=== PATIENT | male | born 1960 | race Caucasian/White ===

== ENCOUNTER 2023-04-01 04:21 | Emergency (ER) | payer OTHER, SELFPAY ==
[2023-04-01 04:25] VITALS: BP 159/96; PULSE 70; RESP 18; TEMP 36.6; O2SAT 98; BMI 32.5
--- NOTE | 2023-04-01 04:39 | CRLHL7_ITS ---
For Patients: As a result of the Cures Act, medical imaging exams and procedure reports are released immediately into your electronic medical record. You may view this report before your referring provider. If you have questions, please contact your health care provider. INDICATION: Left flank pain. TECHNIQUE: CT abdomen and pelvis without contrast. COMPARISON: None FINDINGS: Lower chest: Small sliding hiatus hernia. Visualized lung parenchyma clear. Liver: Unremarkable. Spleen: Unremarkable. Pancreas: Unremarkable. Gallbladder and bile ducts: Unremarkable. Kidneys: 5 mm left UPJ calculus with mild hydronephrosis. Millimeter nonobstructing calculus lower pole left kidney. 13 mm partially exophytic cyst lateral mid pole left kidney. 9 x 5 mm calculus lower pole right kidney. No obstruction on the right. Adrenal glands: Unremarkable. GI tract: Unremarkable. Appendix is normal. Vascular structures: Unremarkable. Lymph nodes: Unremarkable. Miscellaneous: Unremarkable. No free air or significant free fluid. Pelvic Organs: Unremarkable. Bones: Chronic bilateral L5 pars defects with mild grade 1 anterolisthesis. IMPRESSION: Partially obstructing 5 mm left UPJ calculus. Other nonobstructing calculi in each kidney as described. Small sliding hiatus hernia. Chronic L5 pars defects without anterolisthesis. Please note that all CT scans at this facility use dose modulation, iterative reconstruction, and/or weight-based dosing when appropriate to reduce radiation dose to as low as reasonably achievable. Dictated by Taye Neal MD @ 04/01/2023 6:12:36 AM (Electronically Signed)
--- NOTE | 2023-04-01 04:40 | ED.GENADULT ---
HPI - General Adult General Time Seen by Provider: 04:40 Date Seen: 04/01/23 Chief complaint: Back Injury/Pain Stated complaint: Left Side Back Pain Time Seen by Provider: 04/01/23 04:33 Source: patient, RN notes reviewed and old records reviewed Mode of arrival: ambulatory Limitations: no limitations History of Present Illness HPI narrative: 63-year-old male who comes in with left-sided low back pain. This started this morning. Pain is constant, no worse with movement. Denies urinary symptoms but pain does radiate into the left testicle and hemiscrotum. No vomiting, does have some nausea. No bowel or bladder disc function. Pain does not radiate into the leg. Has not taken anything for this. Related Data Home Medications Medication Instructions Recorded Confirmed atenolol 50 mg tablet 50 mg PO DAILY 04/01/23 04/01/23 glimepiride 2 mg tablet 2 mg PO QAM 04/01/23 04/01/23 lisinopril 5 mg tablet 5 mg PO DAILY 04/01/23 04/01/23 metformin 1,000 mg tablet 1,000 mg PO BID 04/01/23 04/01/23 rosuvastatin 5 mg tablet 5 mg PO QPM 04/01/23 04/01/23 Allergies Allergy/AdvReac Type Severity Reaction Status Date / Time doxycycline Allergy Hives Verified 04/01/23 04:30 [facility] Social History Smoking Status: Never smoker Do you use any of these nicotine containing products: None How often do you have a drink containing alcohol: never AUDIT-C Alcohol total score: 0 Non-prescribed substance use: former substance user Non-prescribed substance use details: used to smoke weed a long time ago Exam Narrative: Exam Narrative: General: Well-developed and well-nourished, no acute distress Head: Atraumatic and normocephalic Eyes: Pupils are equal reactive, extraocular motions intact, conjunctiva clear ENT: External nose and ears are normal, posterior pharynx without erythema or exudate Neck: No midline cervical tenderness, full spontaneous range of motion the neck, trachea midline, no adenopathy Heart: Regular rate and rhythm no murmurs or thrills Lungs: Clear to auscultation bilaterally without wheezes or crackles Abdomen: Soft, nontender, nondistended with active bowel sounds Musculoskeletal: No tenderness, deformity, or edema Neurologic: Awake, alert, and oriented x3, no gross focal neurologic deficits, cranial nerves intact as tested Psych: Mood and affect are appropriate Skin: No rashes Const: Vital Signs, click to edit/add: Vital Signs - 24 hr 04/01/23 04:25 04/01/23 05:47 Temperature 98 F Pulse Rate [Pulse Oximeter] 70 73 Respiratory Rate 18 16 Blood Pressure [Ri ght Upper Arm] 159/96 H 123/75 Pulse Oximetry 98 93 Oxygen Delivery Me thod Room Air Room Air Course Course Hospital Course: Patient seen examined, prior records reviewed. Patient with history of diabetes and CLL comes in with left-sided low back pain radiating to the left testicle. Not reproducible on exam, no CVA tenderness, moves easily from laying to sitting. Given the pain radiates into the left testicle and is not worse movement, suspect kidney stone. With history of CLL, worry about bony metastases as well. Labs and CT scan ordered along with Toradol and Zofran. Reevaluation(s) Time of Reevaluation #1: 05:14 Reevaluation #1: Urinalysis independently interpreted by me with trace blood, basic panel independently interpreted by me is reassuring. CT scan of the abdomen and pelvis in the panel interpreted by me demonstrates a 4 mm proximal ureteral/UPJ stone on the left. Patient will be discharged with medications for pain and nausea, follow-up instructions. White blood cell count is elevated at 55.9 consistent with CLL but no indication of infection on urinalysis. Time of Reevaluation #2: 06:14 Reevaluation #2: Radiology interpretation agrees with my initial interpretation. Pain is improved. Vital Signs Vital signs: Initial Vital Signs Temperature 98 F 04/01/23 04:25 Temperature Source Temporal Artery Scan 04/01/23 04:25 Pulse Rate 70 04/01/23 04:25 Respiratory Rate 18 04/01/23 04:25 Blood Pressure 159/96 H 04/01/23 04:25 Blood Pressure Mean 117 H 04/01/23 04:25 Blood Pressure Position Supine 04/01/23 04:25 Pulse Oximetry 98 04/01/23 04:25 Oxygen Delivery Method Room Air 04/01/23 04:25 Vital Signs Temperature 98 F 04/01/23 04:25 Pulse Rate 70 04/01/23 04:25 Respiratory Rate 18 04/01/23 04:25 Blood Pressure 159/96 H 04/01/23 04:25 Pulse Oximetry 98 04/01/23 04:25 Oxygen Delivery Method Room Air 04/01/23 04:25 Temperature 98 F 04/01/23 04:25 Pulse Rate 73 04/01/23 05:47 Respiratory Rate 16 04/01/23 05:47 Blood Pressure 123/75 04/01/23 05:47 Pulse Oximetry 93 04/01/23 05:47 Oxygen Delivery Method Room Air 04/01/23 05:47 Medical Decision Making Lab Data Labs: Lab Results 04/01/23 Range/Units 03:40 WBC 55.88 H* (4.50-11.00) K/uL RBC 5.22 (4.30-5.90) m/uL Hgb 14.9 (13.5-17.5) gm/dL Hct 46.1 (37.0-53.0) % MCV 88 (80-100) fL MCH 29 (26-34) pg MCHC 32 (32-36) gm/dL RDW Coeff of Sandy 13.3 (11.5-15.5) % Plt Count 203 (140-440) K/uL Neut % (Auto) 8.5 L (42.0-72.0) % Lymph % (Auto) 89.5 H (20-44) % [place] % (Auto) 1.4 (0.0-11.0) % Eos % (Auto) 0.4 (0.0-7.0) % Baso % (Auto) 0.1 (0.0-3.0) % Neut # (Auto) 4.70 (1.7-7.0) K/uL Lymph # (Auto) 50.00 H (0.90-2.90) K/uL [place] # (Auto) 0.80 (0.00-0.90) K/UL Eos # (Auto) 0.20 (0.00-0.50) K/uL Baso # (Auto) 0.10 (0.00-0.30) K/uL Diff Slide Review Acceptable Review (Acceptable) Sodium 140 (135-149) mmol/L Potassium 4.3 (3.6-5.1) mmol/L Chloride 106 (96-114) mmol/L Carbon Dioxide 22 (20-32) mmol/L BUN 25 (7-30) mg/dL Creatinine 1.2 (0.5-1.5) mg/dL Estimated Creat Clear 69.16 Estimated GFR 68 ml/min Glucose 190 H (60-115) mg/dL Calcium 9.4 (8.4-10.6) mg/dL Urine Color Yellow (Yellow) Urine Appearance Clear (Clear) Urine pH 5.5 (5.0-8.5) Ur Specific [place] 1.025 (1.000-1.030) Urine Protein Negative (Negative) Urine Glucose (UA) Negative (Negative) Urine Ketones Negative (Negative) Urine Blood Trace-lysed A (Negative) Urine Nitrite Negative (Negative) Urine Bilirubin Negative (Negative) Urine Urobilinogen 0.2 (0.2-1.0) Ur Leukocyte Esterase Negative (Negative) Urine RBC 0-2 (0-2) Urine WBC 0-2 (0-5) Ur Squamous Epith Cells Few (None-Few) Urine Bacteria None (None) Discharge Plan Discharge Clinical Impression: Calculus of proximal left ureter Patient Disposition: Home, Self-Care Condition: Stable Instructions: Ureteral Stones (ED) Additional Instructions: Drink to thirst Take Tylenol 1 g every 6 hours alternating with ibuprofen 400mg every 6 hours scheduled for baseline pain management Take chewable dimenhydrinate (Dramamine) every 6 hours for pain management and nausea Take oxycodone as needed for severe pain not relieved with Tylenol and ibuprofen Take Zofran as needed for nausea Follow-up with [facility] ([phone] or [email or web address] or [facility] [place] ([phone]) or [place] ([phone]) this week. You may also try to schedule with Dr. Tomlinson in [place] ([phone]). Activity Level: Activity as Tolerated Discharge Diet: Regular Prescriptions: No Action glimepiride 2 mg tablet 2 mg PO QAM metformin 1,000 mg tablet 1,000 mg PO BID lisinopril 5 mg tablet 5 mg PO DAILY atenolol 50 mg tablet 50 mg PO DAILY rosuvastatin 5 mg tablet 5 mg PO QPM Follow Up/Referrals: Marcelino Ramirez MD [Primary Care Provider] - Stand Alone Forms: [facility] Info Instructions
[2023-04-01 04:52] LABS: Appearance Urine Clear (Clear); Basophils Percent Auto 0.1 % (0.0-3.0); Bilirubin Urine Negative (Negative); Blood Urine Trace-lysed (Negative); Color Urine Yellow (Yellow); Eosinophils Percent Auto 0.4 % (0.0-7.0); Glucose Urine Negative (Negative); Hematocrit 46.1 % (37.0-53.0); Hemoglobin* 14.9 gm/dL (13.5-17.5); Immature Granulocytes Pct Auto 0.1 %; Ketones Urine Negative (Negative); Leukocyte Esterase Urine Negative (Negative); Lymphocytes Percent Auto 89.5 % (20-44); Mean Corpuscular HGB Conc 32 gm/dL (32-36); Mean Corpuscular Hemoglobin 29 pg (26-34); Mean Corpuscular Volume 88 fL (80-100); Monocytes Percent Auto 1.4 % (0.0-11.0); Neutrophils Percent Auto 8.5 % (42.0-72.0); Nitrite Urine Negative (Negative); Platelet Count* 203 K/uL (140-440); Protein Urine Negative (Negative); RDW Coefficient of Variation % 13.3 % (11.5-15.5); Red Blood Count 5.22 m/uL (4.30-5.90); Specific Gravity Urine 1.025 (1.000-1.030); Urobilinogen Urine 0.2 (0.2-1.0); pH Urine 5.5 (5.0-8.5)
[2023-04-01] MEDS: ONDANSETRON 2 MG/ML inj 4 MG IVP (04:54)
[2023-04-01] MEDS: 0.9 % SODIUM CHLORIDE 1000 ml 1,000 ML IV (04:54)
[2023-04-01] MEDS: KETOROLAC 15 MG/ML inj IVP (04:54)
[2023-04-01 05:06] LABS: Chloride* 106 mmol/L (96-114)
[2023-04-01 05:07] LABS: Potassium* 4.3 mmol/L (3.6-5.1); Sodium* 140 mmol/L (135-149)
[2023-04-01 05:09] LABS: Carbon Dioxide* 22 mmol/L (20-32); Creatinine* 1.2 mg/dL (0.5-1.5); Est. Creatinine Clearance* 69.16; Estimated Glomerular Filt Rate 68 ml/min; RBC Urine 0-2 (0-2); Squamous Epithelial Cell Urine Few (None-Few); WBC Urine 0-2 (0-5)
[2023-04-01 05:10] LABS: Blood Urea Nitrogen* 25 mg/dL (7-30); Calcium* 9.4 mg/dL (8.4-10.6); Glucose* 190 mg/dL (60-115)
[2023-04-01 05:15] LABS: Slide Review Reflex Yes; White Blood Count* 55.88 K/uL (4.50-11.00)
[2023-04-01 05:17] LABS: Slide Review Acceptable Review (Acceptable)
--- NOTE | 2023-04-01 05:17 | PC.NURSE ---
Dr Snyder updated on critical WBC.
--- OUTSIDE RECORDS SUMMARY | 2023-04-01 05:23 | XMS_ITS | Continuity of Care Document ---
Author Name Unknown Organization [facility] Address [address] [address] [place] [address] Phone Care Team Providers Care Inventory Audit Clerk Name Role Phone Tod Griffin MD Unavailable Unavailable Allergies, Adverse Reactions, Alerts Substance Reaction Status Criticality No Known allergies Medications Medication Instructions Dosage Effective Dates (start - stop) Status Comments atenolol 50 mg tablet take 1 tablet by oral route every day 50 MG - Active MiralaxBisacodylMagCit Colon Prep Use as directed - No Longer Active Procedures Procedure Date Colonoscopy Flex; Dx (sep Pro) 15 Advance Directives Directive Yes / No Effective Date File Name No Information Encounters Encounter Description Practice Location Reason(s) For Visit Diagnoses Date Provider Providers Copied on Encounter [facility], [address] [address], [place], [place], [id number], tel:[phone] [place] [facility] DiverticulosisColon Cancer ScreeningDiverticul osis Of Colon 5 Elias Baron. [address] [place] [address], [id number] , [place]. tel: [phone] [facility], [address] [address], [place], [place], [id number], [place] tel:[phone] [facility] External Referral 5 Bryant Meade. [address] [place] [address], [id number] , [place]. tel:[phone] Family History Family Member Type Diagnosis Age At Onset Father Problem (finding) Father Problem (finding) Lymphoma Mother Problem (finding) diverticulitis of colon Mother Problem (finding) Alive and well Payers Payer name Insurance type Covered democrat ID Logan zee(s) [facility] [id number] Social History Type Description Quantity Date Captured Comments Alcohol Use Details Unknown Caffeine Use Details Unknown Tobacco Use Status No Information Smoking Status Never smoker Sex Male Vital Signs Date / Time: Height Weight BMI Pulse Rate Blood Pressure Temperature Respiratory Rate Body Surface Area Head Circumference Head Circ. Percentile Wt./Kip. Percentile BMI percentile Pulse Ox Inhaled Ox 72.00 in 131.520 kg (290.00 lbs) 39.3 0 kg/m eter (2) 76 /min 152/97 mm[Hg] 0.00 F 16 /min 97 % Chief Complaint And Reason For Visit No Information Reason For Referral Reason For Referral No Information Plan Of Treatment Date Type Action Status No Information History Of Present Illness Encounter Date Complaint History Of Prese nt Illness No Information Functional Status Date Functional Assessmen t No Information Instructions Date Instruction Additional Infor alonsoion Colon Cancer Prevention Related to Diverticulosis Diverticulosis/Diverticulitis Re lated to Diverticulosis High Fiber Diet Related to Diver ticulosis Assessments Type Assessment Date assessment Diverticulosis Patient Care Teams Name Effective Dates (start - stop) Status Members No Information
[2023-04-01 05:47] VITALS: BP 123/75; PULSE 73; RESP 16; O2SAT 93
--- NOTE | 2023-04-01 06:49 | PC.NURSE ---
patient DC with urinary strainer and collection container. and stated understanding to DC instruction
== END 2023-04-01 06:49 | disposition home or self-care (01) ==
PROVIDERS: Emergency Provider Family Medicine; PCP Family Medicine
DX: N20.1 Calculus of ureter (principal)
CPT/HCPCS: 36415; 74176; 80048; 81001; 85025; 96374; 96375; 99284; J1885; J2405; J7030

== ENCOUNTER 2023-04-09 07:47 | Outpatient (CLI) | payer OTHER, SELFPAY | END 2023-04-09 07:48 | disposition home or self-care (01) | PROVIDERS: PCP Family Medicine; Visit Provider Family Medicine | DX: Z00.00 Encounter for general adult medical examination without abnormal findings (principal); I10 Essential (primary) hypertension; E11.9 Type 2 diabetes mellitus without complications; Z13.6 Encounter for screening for cardiovascular disorders; Z12.5 Encounter for screening for malignant neoplasm of prostate | CPT/HCPCS: 80053; 80061; 82043; 82570; 84153 ==

== ENCOUNTER 2023-05-15 09:41 | Outpatient (RCR) | payer OTHER, SELFPAY ==
[2023-05-15 10:05] LABS: Basophils Percent Auto 0.1 % (0.0-3.0); Eosinophils Percent Auto 0.6 % (0.0-7.0); Hematocrit 44.5 % (37.0-53.0); Hemoglobin* 14.3 gm/dL (13.5-17.5); Immature Granulocytes Pct Auto 0.1 %; Mean Corpuscular HGB Conc 32 gm/dL (32-36); Mean Corpuscular Hemoglobin 28 pg (26-34); Mean Corpuscular Volume 88 fL (80-100); Monocytes Percent Auto 3.2 % (0.0-11.0); Platelet Count* 179 K/uL (140-440); RDW Coefficient of Variation % 13.6 % (11.5-15.5); Red Blood Count 5.07 m/uL (4.30-5.90)
[2023-05-15 10:35] LABS: Slide Review Reflex Yes; White Blood Count* 52.61 K/uL (4.50-11.00)
[2023-05-15 10:37] LABS: Slide Review Acceptable Review (Acceptable)
== END 2023-11-11 23:59 | disposition home or self-care (01) ==
LOC: CCIC 09:41
PROVIDERS: PCP Family Medicine; Visit Provider Internal Medicine Hematology & Oncology
DX: C91.10 Chronic lymphocytic leukemia of B-cell type not having achieved remission (principal)
CPT/HCPCS: 36415; 85025; 99212; 99213

== ENCOUNTER 2023-09-16 16:05 | Outpatient (CLI) | payer OTHER, SELFPAY | END 2023-09-16 16:06 | disposition home or self-care (01) | LOC: NFLDREF 16:07 | PROVIDERS: PCP Family Medicine; Visit Provider Family Medicine | DX: Z01.818 Encounter for other preprocedural examination (principal) | CPT/HCPCS: 80048 ==

== ENCOUNTER 2023-10-02 15:54 | Outpatient (CLI) | payer OTHER, SELFPAY | END 2023-10-02 15:55 | disposition home or self-care (01) | LOC: NFLDREF 15:56 | PROVIDERS: PCP Family Medicine; Visit Provider Family Medicine | DX: I10 Essential (primary) hypertension (principal); E78.5 Hyperlipidemia, unspecified | CPT/HCPCS: 80048 ==

== ENCOUNTER 2023-10-28 06:12 | Day surgery (SDC) | payer OTHER, SELFPAY ==
[2023-10-28] VITALS (11 sets, daily range): BP systolic 105–130; BP diastolic 65–96; PULSE 63–85; RESP 14–16; TEMP 36.4–37.2; O2SAT 94–99; BMI 30.4
--- OUTSIDE RECORDS SUMMARY | 2023-10-28 06:15 | XMS_ITS | Clinical Summary ---
Author Name Unknown Organization [facility] Address [place], [place] [address] Care Team Providers Care Paper Sample Clerk Name Role Phone Marcelino Ramirez MD Primary Care Provider [phone] Allergies Active Allergy Reactions Criticality Noted Date Comments Doxycycline Hives Low 03/25/2022 Medications Medication Sig Dispensed Refills Start Date End Date Status atenoloL (TENORMIN) 50 mg tablet Take 50 mg by mouth once daily. 0 04/24/2022 Active glimepiride (AMARYL) 2 mg tablet TAKE ONE TABLET BY MOUTH IN THE MORNING WITH BREAKFAST. 0 04/13/2022 Active lisinopriL (PRINIVIL; ZESTRIL) 5 mg tablet Take 5 mg by mouth once daily. 0 04/13/2022 Active metFORMIN (GLUCOPHAGE) 1,000 mg tablet Take 1,000 mg by mouth in the morning and 1,000 mg in the evening. Take with meals. 0 04/24/2022 Active rosuvastatin (CRESTOR) 5 mg tablet Take 5 mg by mouth at bedtime. 0 04/13/2022 Active tamsulosin (FLOMAX) 0.4 mg capsule Take 0.4 mg by mouth once daily. 0 Active HYDROcodone-acetami nophen ([place]) 5-325 mg per tablet Take 1-2 Tablets by mouth every 6 hours if needed for Pain. Max acetaminophen dose: 4000 mg in 24 hrs. 0 Active oxyCODONE (ROXICODONE) 5 mg immediate release tablet Take 5 mg by mouth every 4 hours if needed for Pain. 0 Active Social History Tobacco Use Types Packs/Day Years Used Date Smoking Tobacco: Never Assessed Sex and Gender Information Value Date Recorded Sex Assigned at Not on file Gender Identity Not on file Sexual Orientation Not on file Obstetrics History Last Filed Vital Signs Vital Sign Reading Time Taken Comments Blood Pressure 135/82 05/08/2022 3:09 PM CDT Pulse 75 05/08/2022 3:09 PM CDT Temperature - - Respiratory Rate - - Oxygen Saturation 95% 05/08/2022 3:09 PM CDT Inhaled Oxygen Concentration - - Weight 113 kg (249 lb 3.2 oz) 05/08/2022 3:09 PM CDT Height - - Body Mass Index - - Plan of Treatment Health Maintenance Due Date Last Done Comments Tdap 12/31/1970 Depression screening for age 12+ 1972 HIV for age 15-65 12/31/1974 BMI (ht and wt on same day) for age 18+ 12/31/1977 Hepatitis C screening for ag e 18-79 12/31/1977 Tetanus booster 1980 Colonoscopy through age 75 12/31/2004 Lipids for age 45-75 12/31/2004 Zoster (shingles) series for age 50+ (1 of 2) 12/31/2009 COVID-19 vaccine series (2022- season) 2023 09/26/2021, 01/13/2021, 12/23/2020 Influenza for age 50-64 06/06/2023 Pneumococcal series for age 6-64 Aged Out No longer eligible b ased on patient's age to complete this topic Care Teams Paper Sample Clerk Relationship Specialty Start Date End Date Marcelino Ramirez MD [address] [place] [address] PCP - General Family Practice 05/08/22
--- OUTSIDE RECORDS SUMMARY | 2023-10-28 06:15 | XMS_ITS | Data Portability ---
Author Name Unknown Address [address] [place] [address] Phone [phone] Organization [facility], Main Office Address [address] [address] Assessment Encounter Date Assessment Date Assessment LastModified by Organization Details LastModified Time 08/02/2019 08/02/2019 1. Basal carcino ma right nasal red here for Mohs surgery. We discussed the risks and benefits including pain, discomfort, bruising, swollen eyelids, 2% infection rate, 2 to 5% recurrence rate after Mohs surgery 5 years and 10 years respectively. Reviewed the difficulty in closure of this area to minimize any risk of ectropion or disruption of the medial canthus. This may require graft or flap. This was reviewed in great detail prior to the procedure. Verbal and written informed consent obtained. Anesthetized 1% lidocaine with epinephrine. Mohs case number [id number] Stage I: Curette debulking performed. 1 to 1/2 mm margins were taken circumferentially carried down to the deep dermis. There was no residual basal carcinoma. Final lesion size 1.0 x 0.8 cm. Due to the nature of the defect the location intermediate or complex closure would cause too much tension on the medial canthus. We performed a superior based transposition flap using the glabellar lines. Undermined all directions 1 to 2 cm. Rotated inferior. Closed with 4-0 Vicryl and 4-0 nylon to be removed in 1 week in [facility]. Pressure dressing applied, cell phone number, clinic phone number given. Verbal and written informed consent obtained verbal and written instructions given for wound care The final flap, cover less than 10 cm?? surface area on the face. Flap was performed to minimize risk of any ectropion [email or web address] Not available 08/05/2019 23:05:32 Plan of Treatment Reminders Order Date Submit Date Provider Last Modified By Organization Details Last Modified Time Details Appointments None record ed. Lab None record ed. Referral None record ed. Procedures None record ed. Surgeries None record ed. Imaging None record ed. Medication Orders None record ed. Patient TargetsNo targets recorded. Patient InstructionsNo instructions recorded. Reason for Referral None Reported. Results Created Date Observation Date Name Description Value Unit Range Abnormal Flag LastModifiedBy Organization Detail LastModifiedTime Result Notes None recorded. Problems No Known Problems Medical Equipment None Reported. Allergies No known drug allergies Medications Name Sig Start Date Stop Date Status Note LastModified by Organization Details LastModified Time softclix mis lancets active Not Available Not Available Not Available metformin 1,000 mg tablet active Not Available Not Available Not Available lisinopril 5 mg tablet active Not Available Not Available No t Available atenolol 50 mg tablet active Not Available Not Available No t Available Contour Next Test Strips active Not Available Not Available Not Available Vitals None Recorded Social History None recorded. Functional Status None recorded. Mental Status None recorded. Family History Nothing Reported. Medical History No medical history recorded. Past Encounters Encounter ID Performer Location Encounter Start Date Encounter Closed Date Diagnosis/Indication [id number] Ingris Treviño MD Main Office [address] [facility] [address] [place] [address] 08/02/2019 09:28:21 08/05/2019 23:33:50 Basal cell carcinoma of nose Health Concerns Section Related Observation LastModified by Organization Detai ls LastModified Time None Recorded Concern Status LastModified by Organization Details LastModified Time None Recorded Advance Directives Directive None Recorded Payers Encounter Date Sequence Insurance Name Policy Number Policy Reilly Covered Member ID Reilly Member ID Guarantor Name 08/02/2019 1 [place] [id number] Willsudarshan Carterlund [id number] Will Sultana Notes Date Note Type Note Provider Name and Address Organization Details Recorded Time 08/02/2019 text/html HPI Notes: 59-year-old male, presents alone, for evaluation of a biopsy-proven basal carcinoma right nasal root. His past medical history social history and family history known to me from [place]. Review of systems feels in good health notes no issues with bleeding, clotting or healing. Ingris Treviño MD [address],[facility], [place], [address], [facility] 08/05/2019 23:06:04
--- OUTSIDE RECORDS SUMMARY | 2023-10-28 06:16 | XMS_ITS | Encounter Summary ---
Author Name Unknown Organization [facility] Address [address] [place] [address] Care Team Providers Care Rubber Goods Finisher Name Role Phone Unavailable Primary Care Provider Unavailabl e Reason for Visit * Reason Onset Date Comments URO SURGERY DATE 04/16/23 04/03/2023 Encounter Details Date Type Department Care Team (Latest Contact Info) Description 04/03/2023 Clinical Communication Department of Urology in [place], [place] [address] [address] Kaleb Tomlinson M.D. [address] [address] URO SURGERY DATE 04/16/23 Social History Tobacco Use Types Packs/Day Years Used Date Smoking Tobacco: Never Passive Smoke Exposure: Never Smokeless Tobacco: Never Humiliation, Afraid, Rape, and Kick questionnair e Answer Date Recorded Within the last year, have y ou been afraid of your partner or ex-partner? No 04/03/2023 Within the last year, have y ou been humiliated or emotionally abused in other ways by your partner or ex-partner? No Within the last year, have y ou been kicked, hit, slapped, or otherwise physically hurt by your partner or ex-partner? No 04/03/2023 Within the last year, have y ou been raped or forced to have any kind of sexual activity by your partner or ex-partner? No 04/03/2023 Overall Financial Resource Strain (CARDIA) Answe r Date Recorded How hard is it for you to pa y for the very basics like food, housing, medical care, and heating? Not very hard 04/03/2023 Exercise Vital Sign Answer Date Recorde d On average, how many days pe r week do you engage in moderate to strenuous exercise (like a brisk walk)? 1 day 04/03/2023 On average, how many minutes do you engage in exercise at this level? 30 min 04/03/2023 Hunger Vital Sign Answer Date Recorded Within the past 12 months, y ou worried that your food would run out before you got the money to buy more. Never true 04/03/20 Within the past 12 months, t he food you bought just didn't last and you didn't have money to get more. Never true 04/03/2023 PRAPARE - Transportation Answer Date Re corded In the past 12 months, has l ack of transportation kept you from medical appointments or from getting medications? No 03/07 In the past 12 months, has l ack of transportation kept you from meetings, work, or from getting things needed for daily living? No 04/03/2023 Nutrition Answer Date Recorded Nutrition: EVOO Fat Source Unknown 04/03 On average, how many serving s of fruits and vegetables do you eat per day (serving size is equal to 1 cup or approximately the size of a tennis ball)? 3-5 04/03/2023 Dental Answer Date Recorded Dental: Regular Dentist Yes 04/03/20 Employment Answer Date Recorded Employment status Employed and actively working without restrictions 04/03/2023 Housing Stability Answer Date Recorded What is your living situation today? I have a [facility] place to live 04/03/2023 Sex and Gender Information Value Date Recorded Sex Assigned at Male 04/03/2023 6:25 AM CDT Gender Identity Male 04/03/2023 6:25 AM CDT Sexual Orientation Not on file documented as of this encounter Plan of Treatment Not on file documented as of this encounter Visit Diagnoses Not on filedocumented in this encounter
--- OUTSIDE RECORDS SUMMARY | 2023-10-28 06:16 | XMS_ITS | Encounter Summary ---
Author Name Unknown Organization [facility] Address [address] [place] [address] Care Team Providers Care Undercutter Name Role Phone Unavailable Primary Care Provider Unavailabl e Reason for Visit * Reason Onset Date Comments Urgent Appt Request 04/02/2023 Encounter Details Date Type Department Care Team (Latest Contact Info) Description 04/02/2023 Clinical Communication Department of Urology in [place], [place] [address] [address] Kaleb Tomlinson M.D. [address] [address] Urgent Appt Request Social History Tobacco Use Types Packs/Day Years Used Date Smoking Tobacco: Never Assessed Humiliation, Afraid, Rape, and Kick questionnair e [...] your living situation today? I have a [facility] place to live 04/03/2023 Sex and Gender Information Value Date Recorded Sex Assigned at Male 04/03/2023 6:25 AM CDT Gender Identity Male 04/03/2023 6:25 AM CDT Sexual Orientation Not on file documented as of this encounter Miscellaneous Notes * Telephone Encounter - Joselyn Lebron R.N. - 04/02/2023 3:48 PM CDT MAURICIO Lizarraga RN spoke with patient and is scheduled tomorrow, 04/03/23 with Provider Priyank. Patient has requested [facility] records to be faxed to [place]. Ow Uro RN also called [facility] records tofax records. documented in this encounter Plan of Treatment Not on file documented as of this encounter Visit Diagnoses Not on filedocumented in this encounter
--- OUTSIDE RECORDS SUMMARY | 2023-10-28 06:16 | XMS_ITS | Referral Summary ---
Author Name Unknown Organization [facility] Address [address] [place] [address]. [place] [address] Care Team Providers Care Natural Resources Manager Name Role Phone Veronica Byrne Primary Care Provider Allergies No known active allergies Medications Medication Sig Dispensed Refills Start Date End Date Status metFORMIN (GLUCOPHAGE-XR) 500 MG 24 hr tablet Take 500 mg by mouth 2 times daily (with meals) 0 Active atenolol (TENORMIN) 50 MG tablet Take 50 mg by mouth daily 0 Active LISINOPRIL PO Take 5 mg by mouth 0 Active Active Problems No known active problems Social History Tobacco Use Types Packs/Day Years Used Date Smoking Tobacco: Never Smokeless Tobacco: Never Sex and Gender Information Value Date Recorded Sex Assigned at Not on file Gender Identity Not on file Sexual Orientation Not on file Last Filed Vital Signs Vital Sign Reading Time Taken Comments Blood Pressure 144/97 02/24/2018 7:12 PM CDT Pulse 70 03/21/2017 11:29 AM CDT Temperature 37 ??C (98.6 ??F) 02/24/2018 5:52 PM CDT Respiratory Rate 16 02/24/2018 7:16 PM CDT Oxygen Saturation 100% 02/24/2018 7:16 PM CDT Inhaled Oxygen Concentration - - Weight 113.4 kg (250 lb) 02/24/2018 5:52 PM CDT Height 182.9 cm (6') 03/21/2017 11:29 AM CDT Body Mass Index 33.91 03/21/2017 11:29 AM CDT Plan of Treatment Not on file Care Teams Natural Resources Manager Relationship Specialty Start Date End Date Veronica Byrne [facility] [address] [place], [place] [id number] PCP - General Nurse Practitioner 02/24/18
--- OUTSIDE RECORDS SUMMARY | 2023-10-28 06:16 | XMS_ITS | Clinical Summary ---
Author Name Unknown Organization [facility] Address [address] [place] [address]. [place] [address] Care Team Providers Care College Professor Name Role Phone Veronica Byrne Primary Care Provider [phone] Allergies No known active allergies Medications Medication [...] of Treatment Not on file Care Teams College Professor Relationship Specialty Start Date End Date Veronica Byrne [facility] [address] [place], [place] [id number] PCP - General Nurse Practitioner 02/24/18
--- OUTSIDE RECORDS SUMMARY | 2023-10-28 06:16 | XMS_ITS ---
Author Name Unknown Organization [facility] Address [address] [place] [address] Care Team Providers Care Learning Disabilities Specialist Name Role Phone Unavailable Unavailable Unavailable Surgery Details Not on file Complications Check Surgery Details section. Procedure Estimated Blood Loss Check Surgery Details section. Procedure Findings Check Surgery Details section. Procedure Specimens Taken Check Surgery Details section.
--- OUTSIDE RECORDS SUMMARY | 2023-10-28 06:16 | XMS_ITS | Referral Summary ---
Author Name Unknown Organization [facility] Address [address] [place] [address] Care Team Providers Care Steam Plant Records Clerk Name Role Phone Unavailable Primary Care Provider Unavailabl e Source Comments Patient records contain information from all sites at [facility]. For routine questions regarding patient records, call [phone] during business hours, M-F 8:00 AM - 5:00 PM Central Time. Record requests for emergency care only can be directed to [phone] at any time.[facility] Allergies Active Allergy Reactions Criticality Noted Date Comments Doxycycline Hives (Reselect Reaction) Low 2 Medications Medication Sig Dispensed Refills Start Date End Date Status atenoloL (TENORMIN) 50 mg tablet atenolol 50 mg tablet 0 04/24/2022 Active glimepiride (AMARYL) 2 mg tablet TAKE 1 TABLET BY MOUTH DAILY WITH BREAKFAST* 0 Active lisinopriL (PRINIVIL,ZESTRIL) 5 mg tablet Take 5 mg by mouth daily. 0 04/13/2022 Active rosuvastatin (CRESTOR) 5 mg tablet Take 5 mg by mouth daily. 0 Active oxyCODONE (ROXICODONE) 5 mg immediate release tablet 0 04/01/2023 Active metFORMIN (GLUCOPHAGE) 1,000 mg tablet Take 1,000 mg by mouth 2 (two) times a day with meals. 0 04/24/2022 Active tamsulosin (FLOMAX) 0.4 mg 24 hr capsule Take 1 capsule (0.4 mg total) by mouth daily. 30 capsule 0 04/03/2023 Active HYDROcodone-acetamin ophen (NORCO) 5-325 mg per tabletIndications:Ac [place] Pain Exception Take 1-2 tablets by mouth every 6 (six) hours as needed for severe pain or score 7-10 of 10 (pain) Indication: Acute Pain Exception. No more than 8 tablets per day 20 tablet 0 04/03/2023 Active Active Problems Problem Noted Date Diagnosed Date Nephrolithiasis 04/03/2023 Social History Tobacco Use Types Packs/Day Years [...] money to buy more. Never true 04/03/20 23 Within the past 12 months, t he [...] your living situation today? I have a [facility] place to live 04/03/2023 Sex and Gender Information Value Date Recorded Sex Assigned at Male 04/03/2023 6:25 AM CDT Gender Identity Male 04/03/2023 6:25 AM CDT Sexual Orientation Not on file Plan of Treatment Not on file
--- OUTSIDE RECORDS SUMMARY | 2023-10-28 06:16 | XMS_ITS | Encounter Summary ---
Author Name Unknown Organization [facility] Address [address] [place] [address] Care Team Providers Care Cementing Bulk Material Operator Name Role Phone Unavailable Primary Care Provider Unavailabl e Reason for Referral * Outpatient (Routine) - Closed Specialty Diagnoses / Procedures Referred By Bari johnson Referred To Contact Diagnoses Nephrolithiasis Procedures DX Abdomen 1 View Arlin Yost APRN, C.N.P. [address] [phone] [facility] Region Referral ID Status Reason Start Date Expiration Date Visits Re quested Visits Authorized [id number] Closed 04/09/2023 04/08/2024 1 1 Reason for Visit * Outpatient (Routine) - Closed Specialty Diagnoses / Procedures Referred By Bari johnson Referred To Contact Diagnoses Nephrolithiasis Procedures DX Abdomen 1 View Arlin Yost APRN, C.N.P. [address] [place] [phone] [facility] Region Referral ID Status Reason Start Date Expiration Date Visits Re quested Visits Authorized [id number] Closed 04/09/2023 04/08/2024 1 1 Encounter Details Date Type Department Care Team (Latest Contact Info) Description 04/09/2023 12:47 PM CDT - 04/09/2023 11:59 PM CDT Hospital Encounter Department of Radiology in [place], [place] [address] [place] [address] Arlin Yost APRN, C.N.P. [address] [place] [address] Nephrolithiasis Discharge Disposition: Home or Self Care Social History Tobacco Use Types Packs/Day Years [...] your living situation today? I have a [facility] place to live 04/03/2023 Sex and Gender Information Value Date Recorded Sex Assigned at Male 04/03/2023 6:25 AM CDT Gender Identity Male 04/03/2023 6:25 AM CDT Sexual Orientation Not on file documented as of this encounter Medications at Time of Discharge Medication Sig Dispensed Refills Start Date End Date atenoloL (TENORMIN) 50 mg tablet atenolol 50 mg tablet 0 04/24/2022 glimepiride (AMARYL) 2 mg tablet TAKE 1 TABLET BY MOUTH DAILY WITH BREAKFAST* 0 HYDROcodone-acetaminoph en (NORCO) 5-325 mg per tabletIndications:Acute Pain Exception Take 1-2 tablets by mouth every 6 (six) hours as needed for severe pain or score 7-10 of 10 (pain) Indication: Acute Pain Exception. No more than 8 tablets per day 20 tablet 0 04/03/2023 lisinopriL (PRINIVIL,ZESTRIL) 5 mg tablet Take 5 mg by mouth daily. 0 04/13/2022 metFORMIN (GLUCOPHAGE) 1,000 mg tablet Take 1,000 mg by mouth 2 (two) times a day with meals. 0 04/24/2022 oxyCODONE (ROXICODONE) 5 mg immediate release tablet 0 04/01/2023 rosuvastatin (CRESTOR) 5 mg tablet Take 5 mg by mouth daily. 0 tamsulosin (FLOMAX) 0.4 mg 24 hr capsule Take 1 capsule (0.4 mg total) by mouth daily. 30 capsule 0 04/03/2023 documented as of this encounter Plan of Treatment Not on file documented as of this encounter Procedures Procedure Name Priority Date/Time Associated Diagnosis Comments DX ABDOMEN 1 VIEW RAD - Routine (most inpatients and all outpatients) 04/09/2023 1:07 PM CDT Nephrolithiasis documented in this encounter Results * DX Abdomen 1 View (04/09/2023 1:07 PM CDT) Anatomical Region Laterality Modality Abdomen, Abdominal RST LOS, Abdominal ARZ LOS, Abdominal FLA LOS N/A Digital Radiography 04/09/2023 3:42 PM CDT Impressions 04/09/2023 3:45 PM CDT 1. No calcification visualized in the left abdomen or pelvis in the expected location of the renal stone seen on prior CT. 2. Right-sided linear 7 mm calcification correlating with nonobstructing renal calcifications. Prior CT. Narrative 04/09/2023 3:45 PM CDT EXAM: DX ABDOMEN 1 VIEW COMPARISON: CT abdomen pelvis 04/01/2023 FINDINGS: Nonobstructive bowel gas pattern. Right-sided 7 mm Linear calcification correlating with renal calcification as seen on CT. No appreciable left-sided calcification. No acute osseous abnormality. Procedure Note Wiley Perkins M.D. - 04/09/2023 EXAM: DX ABDOMEN 1 VIEW COMPARISON: CT abdomen pelvis 04/01/2023 FINDINGS: Nonobstructive bowel gas pattern. Right-sided 7 mm Linear calcificationcorrelating with renal calcification as seen on CT. No appreciable left-sided calcification. Noacute osseous abnormality. IMPRESSION: 1. No calcification visualized in the left abdomen or pelvis in theexpected location of the renal stone seen on prior CT. 2. Right-sided linear 7 mm calcification correlating with nonobstructingrenal calcifications. Prior CT. Arlin Yost APRN C.N.PDominique IMG DIAGN OSTIC IMAGING PROCEDURES documented in this encounter Visit Diagnoses Diagnosis Nephrolithiasis documented in this encounter
--- OUTSIDE RECORDS SUMMARY | 2023-10-28 06:16 | XMS_ITS | Clinical Summary ---
Author Name Unknown Organization [facility] Address [address] [place] [address] Care Team Providers Care Manager Critical Care Unit Name Role Phone Unavailable Primary Care Provider Unavailabl e Source Comments Patient records contain information from all sites at [facility]. For routine questions regarding patient records, call [phone] during business hours, M-F 8:00 AM - 5:00 PM Central Time. Record requests for emergency care only can be directed to [phone] at any time.[facility] Allergies Active Allergy Reactions Criticality Noted Date [...] HYDROcodone-acetamin ophen (NORCO) 5-325 mg per tabletIndications:Ac [place] Pain Exception Take 1-2 tablets by mouth every 6 (six) hours as needed for severe pain or score 7-10 of 10 (pain) Indication: Acute Pain Exception. No more than 8 tablets per day 20 tablet 0 04/03/2023 Active Active Problems Problem Noted Date Diagnosed Date Nephrolithiasis 04/03/2023 Family History Medical History Relation Name Comments Lymphoma Father Nephrolithiasis Father Alzheimers dementia.. Mother Relation Name Status Comments Father Mother Alive Social History Tobacco Use Types Packs/Day Years [...] your living situation today? I have a [facility] place to live 04/03/2023 Sex and Gender Information Value Date Recorded Sex Assigned at Male 04/03/2023 6:25 AM CDT Gender Identity Male 04/03/2023 6:25 AM CDT Sexual Orientation Not on file Plan of Treatment Health Maintenance Due Date Last Done Comments CT Colonography 1960 Cologuard 1960 Colonoscopy 1960 Colorectal Cancer Screening 1960 Creatinine Level (Kidney Function Test) 1960 FIT 1960 Fasting Glucose for Diabetes Screening 1960 HIV Screening 1960 Hepatitis C Screening 1960 Lipid (Cholesterol) Screening 1960 Potassium Level 1960 Sodium Level 1960 Zoster Vaccines (2 of 3) 09/02/2017 07/08/2017 COVID-19 Vaccine ( season) 2023 09/26/2021, 01/13/2021, 12/23/2020 Influenza Vaccine (#1) 2023 , 07/16/2020, 09/21/2019, Additional history exists Depression Screening (Annual PHQ-2) 10/06/2023 DTaP,Tdap,and Td Vaccines (2 - Td or Tdap) 08/14/2028 08/14/2018 Pneumococcal vaccine (0-64 years) Aged Out 04/09/2023 No longer eligible based on patient's age to complete this topic
--- OUTSIDE RECORDS SUMMARY | 2023-10-28 06:16 | XMS_ITS | Encounter Summary ---
Author Name Unknown Organization [facility] Address [address] [place] [address] Care Team Providers Care Hl7 Interface Developer Name Role Phone Unavailable Primary Care Provider Unavailabl e Reason for Referral * Outpatient (Routine) - Authorized Specialty Diagnoses / Procedures Referred By Bari johnson Referred To Contact Urology Arlin Yost APRN, C.N.P. [address], [place] [address] [facility] Region Referral ID Status Reason Start Date Expiration Date V isits Requested Visits Authorized [id number] Authorized 04/03/2023 04/02/2026 3 3 Reason for Visit * Reason Comments Consult Urolithiasis * Appointment Request (Routine) - Closed Specialty Diagnoses / Procedures Referred By Bari johnson Referred To Contact Urology Referral ID Status Reason Start Date Expiration Date Visits Re quested Visits Authorized [id number] Closed 04/02/2023 04/01/2024 1 1 Encounter Details Date Type Department Care Team (Latest Contact Info) Description 04/03/2023 11:30 AM CDT Comprehensive Visit Department of Urology in [place], [place] [address] [place] [address] Arlin Yost APRN, C.N.P. [address] [place] [address] Nephrolithiasis (Primary Dx) Social History Tobacco Use Types Packs/Day Years [...] your living situation today? I have a [facility] place to live 04/03/2023 Sex and Gender Information Value Date Recorded Sex Assigned at Male 04/03/2023 6:25 AM CDT Gender Identity Male 04/03/2023 6:25 AM CDT Sexual Orientation Not on file documented as of this encounter Consult Notes * Arlin Yost APRN, C.N.P. - 04/03/2023 11:30 AM CDT SUBJECTIVE REQUESTING PROVIDER No ref. provider found REASON FOR CONSULT Urolithiasis HISTORY OF PRESENT ILLNESS Jose Enrique is a pleasant 63-year-old male here today for consultation for left ureteral stone he has neverhad any stones in the past, his father had kidney stone many years ago. His pain started with low back pain, he did not have any hematuria, no symptoms of infection, no pain with urination. He presented to local emergency department and CT scan was performed showing a 4-5 mm stone in the left UPJ. There is an additional nonobstructive stone in the lower pole of the left kidney and a 9 mm x 5 mm stone in the lower pole of the right kidney. His pain has been intermittent, has not changed in location. He has also been having some pain that radiates to the left testicle. Prior to this episode, he was drinking 2 diet sodas per day, 2 or 3 bottles of water while at work and 1 bottle of water on non-work days. He also drinks 2 or 3 cups of coffee. He is now drinking at least 3 bottles of water each day and 2 or 3 cups of coffee. At the time he was seen in the emergency department his creatinine was normal at 1.2. The following portions of the patient's history were reviewed and updated as appropriate: allergies, current medications, family history, medical history, social history, surgical history, and problem list. REVIEW OF SYSTEMS Gastrointestinal: - Negative for constipation. Genitourinary: - Negative for incontinence, difficulty urinating, pain with urination, blood in urine, urgency andfrequent urination. Musculoskeletal: Positive for back pain. Past Medical History: Diagnosis Date Diabetes Mellitus Type 2 (HCC) Hypertension NOS Leukemia Lymphocytic Chronic Remission (HCC) No past surgical history on file. Family History Problem Relation Age of Onset Alzheimers dementia.. Mother Nephrolithiasis Father Lymphoma Father Allergies Allergen Reactions Doxycycline Hives Current Outpatient Medications on File Prior to Visit Medication Sig Dispense Refill atenoloL (TENORMIN) 50 mg tablet atenolol 50 mg tablet glimepiride (AMARYL) 2 mg tablet TAKE 1 TABLET BY MOUTH DAILY WITH BREAKFAST* lisinopriL (PRINIVIL,ZESTRIL) 5 mg tablet Take 5 mg by mouth daily. metFORMIN (GLUCOPHAGE) 1,000 mg tablet Take 1,000 mg by mouth 2 (two) times a day with meals. oxyCODONE (ROXICODONE) 5 mg immediate release tablet rosuvastatin (CRESTOR) 5 mg tablet Take 5 mg by mouth daily. No current facility-administered medications on file prior to visit. Social History Tobacco Use Smoking status: Never Passive exposure: Never Smokeless tobacco: Never OBJECTIVE There were no vitals filed for this visit. PHYSICAL EXAM Vitals and nursing note reviewed. General: Well developed, well nourished, well groomed male in no acute distress. Neurological: Alert, cooperative, oriented x3. Appropriate mood and affect. Abdomen: Soft, non-tender, non-distended Extremities: Warm, without edema or ulcerations. ASSESSMENT / PLAN 1. Nephrolithiasis We had an in-depth discussion about renal and ureteral stones. We discussed how they are formed, how they are prevented, and surgical options for treatment. CT images were reviewed and results discussed with patient. We discussed that expectant therapy typically consists of Flomax, increased fluid intake, and physical activity. Flomax or a similar medication is typically prescribed to help to dilate the ureters to allow more space for stones to pass. Increased fluid intake helps to push stones through the ureter, remaining physically active can also help with moving stones. It is recommended to use a strainereach time they urinate if possible. This stone is approximately 5 mm in size and unlikely to pass without surgical intervention. We discussed the possibility of shockwave lithotripsy, at this time we will plan to go forward with ureteroscopy with laser lithotripsy, stone basketing, stent placement in the operating room with Dr. Tomlinson. He understands that the stent can be very annoying, this will be in place for approximately 1 week after procedure and will be removed in clinic we discussed risks procedure including risk of anesthesia, he will need pre anesthetic medical exam, this has already scheduled with his primary provider on April 09 at [facility]. He will need a entry driver operator the day of procedure, this is a same-dayprocedure. Risks of procedure include risk of bleeding, infection, difficulty accessing stone. Prescription for Flomax is sent to his pharmacy, he should take this daily. He is also given refill of pain medications. He should use Tylenol and ibuprofen alternatively throughout the day and use narcotic medication only as needed. All questions answered today. - Bacterial Culture, Aerobic + Susceptibility, Urine; Future - Urinalysis with Microscopic: Urine, Midstream; Future Signed by: Arlin Yost APRN, C.N.P. 04/03/2023 12:50 PM CDT documented in this encounter Plan of Treatment Scheduled Orders Name Type Priority Associated Diagnoses Orde r Schedule Bacterial Culture, Aerobic + Susceptibility, Urine Microbiology Routine Nephrolithiasis Expected: 04/10/2023 (Approximate), Expires: 04/03/2024 Urinalysis with Microscopic: Urine, Midstream Lab Routine Nephrolithiasis Expected: 04/10/2023 (Approximate), Expires: 04/03/2024 Scheduled Referrals Name Type Priority Associated Diagnoses Orde r Schedule Urology Post Op (clinic) Outpatient Referral Routine Expected: 04/10/2023 (Approximate), Expires: 07/04/2024 documented as of this encounter Visit Diagnoses Diagnosis Nephrolithiasis- Primary documented in this encounter
--- OUTSIDE RECORDS SUMMARY | 2023-10-28 06:16 | XMS_ITS | Encounter Summary ---
Author Name Unknown Organization [facility] [place] Address [address] [place] [address] Care Team Providers Care Manager Produce Name Role Phone Unavailable Primary Care Provider Unavailabl e Reason for Referral * Outpatient (Routine) - Closed Specialty Diagnoses / Procedures Referred By Bari johnson Referred To Contact Diagnoses Nephrolithiasis Procedures DX Abdomen 1 View Merry Bar APRN, C.N.P. [address] [phone] [facility] Region Referral ID Status Reason Start Date Expiration Date Visits Re quested Visits Authorized [id number] Closed 04/09/2023 04/08/2024 1 1 Encounter Details Date Type Department Care Team (Late st Contact Info) Description 04/04/2023 Clinical Communication Department of Urology in [place], [place] [address] [place] [phone] Merry Bar APRN, C.N.P. [address] [place] [phone] Social History Tobacco Use Types Packs/Day Years [...] your living situation today? I [facility] a [facility] place to live 04/03/2023 Sex and Gender Information Value Date Recorded Sex Assigned at Male 04/03/2023 6:25 AM CDT Gender Identity Male 04/03/2023 6:25 AM CDT Sexual Orientation Not on file documented as of this encounter Miscellaneous Notes * Telephone Encounter - Kayy Todd R.N. - 04/09/2023 11:36 AM CDT Patient notified of response message, verbalized understanding. Patient transferred to scheduling. * Addendum Note - Merry Bar APRN, C.N.P. - 04/09/2023 7:33 AM CDT Addended by: MERRY BAR on: 04/09/2023 07:33 AM Modules accepted: Orders * Telephone Encounter - Kayy Todd R.N. - 04/07/2023 1:47 PM CDT Patient contacted, notified of response message. Patient stated that he did an enema and he was successful. He also stated that he passed a stone on Friday and Friday. He was unable to catch the stone. He is wondering if he still needs surgery and what the next steps are. Please advise. * Telephone Encounter - Kayy Todd R.N. - 04/04/2023 3:17 PM CDT Patient calling in stating that he is constipated and his urine flow is weak. Patient has been taking oxycodone for pain which has now run out. He was given a new prescription for Coleman which he has not taken. He has taken three laxative pills' which have not worked. He was wondering what else hecan do or take to help. Please advise. documented in this encounter Plan of Treatment Not on file documented as of this encounter Results * DX Abdomen 1 [...] calcification correlating with nonobstructingrenal calcifications. Prior CT. Merry Bar APRN, C.N.P. IMG DIAGN OSTIC IMAGING PROCEDURES documented in this encounter Visit Diagnoses Diagnosis Nephrolithiasis- Primary Nephrolithiasis documented in this encounter
[2023-10-28] MEDS: LACTATED RINGERS 1000 ML 1,000 ML 100 ML IV ×2 (06:52→08:05)
[2023-10-28] MEDS: SODIUM CHLORIDE 0.9 % (FLUSH) 10 ML SYRINGE IVF (06:52)
--- NOTE | 2023-10-28 07:35 | W.PM.H&PU ---
History & Physical Update History & Physical Update H&P Reviewed and patient assessed: No changes noted
[2023-10-28] MEDS: CEFAZOLIN 2 GM INJ IVP (07:54)
[2023-10-28] MEDS: BUPIVACAINE 0.25% 30 ML INJECTION (08:35)
--- NOTE | 2023-10-28 08:37 | P.GSOP_ITS ---
Operative Note Date of procedure: 10/28/23 Pre-op diagnosis: 1. Incarcerated umbilical hernia containing preperitoneal fat. Post-op diagnosis: Same Type of Procedure: 1. Open umbilical hernia repair with mesh. Indications: 63-year-old male was seen in clinic with an umbilical hernia. He initially noticed an umbilical bulge 5 years ago. He had episodes of pain that was described as sharp and achy and sometimes the pain radiated to suprapubic area. The pain was usually prominent after heavy lifting and strenuous activity. On clinical exam at the superior aspect of the umbilicus there is a larger than grape sized umbilical bulge that was reducible. Patient had discomfort with reducing this hernia. Given patient's clinical history and his physical exam, an open umbilical hernia repair was recommended. The procedure was discussed in detail. The risks associated procedure including infection, bleeding, and injury to preperitoneal organs, as well as hernia recurrence were all discussed with the patient, and he agreed to proceed. Procedure Description: After discussing the risks and benefits of the procedure, the patient signed informed consent.? The operative site was marked and the patient was brought to the operating room and placed on the operating table in supine position.? Care was taken to pad the patient's pressure points.?? The patient was then intubated by anesthesia.?? The operative site was then prepped and draped in the usual sterile fashion.? A time-out was then performed. Local anesthetic was injected at the surgical site. A curvilinear skin incision was made with a scalpel just above umbilicus. Subcutaneous tissue was dissected with electrocautery down to the hernia sac and anterior fascia. The hernia sac was dissected off of the anterior fascia and subcutaneous fat around the fascial defect was dissected away from the fascial defect with cautery. Preperitoneal fat was incarcerated through the hernia defect. When this was dissected off the anterior fascia, it was reduced into the preperitoneal space. I then developed preperitoneal space for mesh insertion. The fascial defect was approximately 10 mm and the surrounding fascia was weak. A small Ventralex ST mesh patch was then inserted into preperitoneal space and secured to the fascia using 0-0 Neurolon interrupted stitches. I examined my closure and no defects were identified between the fascia and the mesh. Fascia was re-approximated over the mesh with a running 2-0 Vicryl stitch. Additional local anesthetic was injected into subcutaneous tissues. An umbilicus was tacked down with interrupted 3-0 Vicryl stitches. Subdermal layer was closed with interrupted sutures using 3-0 Vicryl. Skin was closed with 4-0 Monocryl using subcuticular stitch. Steri strips were applied over the incision. I then placed a folded sterile 2 x 2 and 4x4 gauze over the incision and covered it with tape. All counts were correct at the end of the case. Patient tolerated the procedure well and was transferred to PACU without any complications. Findings: Preperitoneal fat was incarcerated through the hernia defect. This was reduced and hernia was repaired with mesh. [facility] Surgeon: Aileen Arciniega MD Estimated blood loss (mL): 5 Condition: stable Disposition: PACU
--- NOTE | 2023-10-28 08:50 | W.ANESCHARGE ---
Anesthesia Charges Start Date/Time Anesthesia Start Date: 10/28/23 Anesthesia Start Time: 07:36 Stop Date/Time Anesthesia Stop Date: 10/28/23 Anesthesia Stop Time: 08:49
--- NOTE | 2023-10-28 09:39 | W.ANESCHARGE ---
Anesthesia Charges Start Date/Time Anesthesia Start Date: 10/28/23 Anesthesia Start Time: 07:36 Stop Date/Time Anesthesia Stop Date: 10/28/23 Anesthesia Stop Time: 08:49
--- NOTE | 2023-10-28 10:30 | SUR.PHASEII ---
pt rated pain 2/10. declined pain medications. Declined food and drink. Encouraged pt to start with light diet today. Ambulated to car. discharged to home with his brother.
== END 2023-10-28 10:33 | disposition home or self-care (01) ==
PROVIDERS: PCP Family Medicine; Visit Provider Surgery
PROC: (CPT 49592; principal; 2023-10-28 07:30)
DX: K42.0 Umbilical hernia with obstruction, without gangrene (principal)
CPT/HCPCS: 49592; 00830; 82962; C1781; J0665; J0690; J1100; J1885; J2405; J2704; J2710; J3010; J7120

== ENCOUNTER 2024-04-09 08:34 | Outpatient (CLI) | payer OTHER, SELFPAY ==
--- OUTSIDE RECORDS SUMMARY | 2024-04-11 07:51 | XMS_ITS | Referral Summary ---
Author Organization [facility] Address [address] [place] [address]. [place] [address] Care Team Providers Care Timber Deadener Name Role Phone Veronica Byrne Primary Care Provider [phone] Allergies No known active allergies Medications Medication Sig Dispensed Refills Start Date End Date Status metFORMIN (GLUCOPHAGE-XR) 500 MG 24 hr tablet Take 500 mg by mouth 2 times daily (with meals) Active atenolol (TENORMIN) 50 MG tablet Take 50 mg by mouth daily Active LISINOPRIL PO Take 5 mg by mouth Active Active Problems No known active problems [...] of Treatment Not on file Care Teams Timber Deadener Relationship Specialty Start Date End Date Veronica Byrne [facility] [address] [place], [place] [id number] PCP - General Nurse Practitioner 02/24/18
--- OUTSIDE RECORDS SUMMARY | 2024-04-11 07:51 | XMS_ITS | Clinical Summary ---
Author Organization [facility] Address [place], [place] [address] Care Team Providers Care Practical Nursing Faculty Name Role Phone Marcelino Ramirez MD Primary Care Provider [phone] Allergies Active Allergy Reactions Criticality Noted Date Comments Doxycycline Hives Low 03/25/2022 Medications Medication Sig Dispensed Refills Start Date End Date Status atenoloL (TENORMIN) 50 mg tablet Take 50 mg by mouth once daily. 04/24/2022 Active glimepiride (AMARYL) 2 mg tablet TAKE ONE TABLET BY MOUTH IN THE MORNING WITH BREAKFAST. 04/13/2022 Active lisinopriL (PRINIVIL; ZESTRIL) 5 mg tablet Take 5 mg by mouth once daily. 04/13/2022 Active metFORMIN (GLUCOPHAGE) 1,000 mg tablet Take 1,000 mg by mouth in the morning and 1,000 mg in the evening. Take with meals. 04/24/2022 Active rosuvastatin (CRESTOR) 5 mg tablet Take 5 mg by mouth at bedtime. 04/13/2022 Active tamsulosin (FLOMAX) 0.4 mg capsule Take 0.4 mg by mouth once daily. Active HYDROcodone-acetami nophen ([place]) 5-325 mg per tablet Take 1-2 Tablets by mouth every 6 hours if needed for Pain. Max acetaminophen dose: 4000 mg in 24 hrs. Active oxyCODONE (ROXICODONE) 5 mg immediate release tablet Take 5 mg by mouth every 4 hours if needed for Pain. Active Social History Tobacco Use Types Packs/Day [...] 09/26/2021, 01/13/2021, 12/23/2020 Influenza for age 50-64 06/06/2024 Pneumococcal series for age 6-64 Aged Out No longer eligible b ased on patient's age to complete this topic Care Teams Practical Nursing Faculty Relationship Specialty Start Date End Date Marcelino Ramirez MD [address] [place] [address] PCP - General Family Practice 05/08/22
--- OUTSIDE RECORDS SUMMARY | 2024-04-11 07:51 | XMS_ITS | Continuity of Care Document ---
Author Organization [facility] Address [address] [address] [place] [address] Phone Care Team Providers Care Survey Crew Chief Name Role Phone Tod Griffin MD Unavailable Unavailable Allergies, Adverse Reactions, Alerts Substance Reaction Status Criticality No Known allergies Medications Medication Instructions Dosage Effective Dates (start - stop) Status Comments atenolol 50 mg tablet take 1 tablet by oral route every day 50 MG - Active MiralaxBisacodylMagCit Colon Prep Use as directed - No Longer Active Procedures Procedure Date Colonoscopy Flex; Dx (jun Pro) 15 Advance Directives Directive Yes / No Effective Date File Name No Information Encounters Encounter Description Practice Location Reason(s) For Visit Diagnoses Date Provider Providers Copied on Encounter [facility], [address] [address], [place], [place], [id number], tel:[phone] [place] [facility] DiverticulosisColon Cancer ScreeningDiverticul osis Of Colon 5 Elias Baron. [address] [place] [address], [id number] , [place]. tel: [phone] [facility], [address] [address], [place], [id number], [place] tel:[phone] [facility] External Referral Jan- 5 Bryant Meade. [address] [place] [address], [place] [address], [place], [place], [id number] , [place]. tel: [phone] Family History Family Member Type Diagnosis Age At Onset Father Problem (finding) Father Problem (finding) Lymphoma Mother Problem (finding) diverticulitis of colon Mother Problem (finding) Alive and well Payers Payer name Insurance type Covered green party ID [place] zee(s) [employer] [id number] Social History Type Description Quantity Date Captured [...] For Referral Reason For Referral No Information History Of Present Illness Encounter Date Complaint History Of Prese nt Illness No Information Functional Status Date Functional Assessmen t No Information Instructions Date Instruction Additional Infor mation Colon Cancer Prevention Related to Diverticulosis Diverticulosis/Diverticulitis Re lated to Diverticulosis High Fiber Diet Related to Diver ticulosis Assessments Type Assessment Date assessment Diverticulosis Patient Care Teams Name Effective Dates (start - stop) Status Members No Information
--- OUTSIDE RECORDS SUMMARY | 2024-04-11 07:51 | XMS_ITS | Clinical Summary ---
Author Organization [facility] Address [address] [place] [address] Care Team Providers Care Car Groomer Name Role Phone Unavailable Primary Care Provider Unavailabl e Source Comments Patient records contain information from all sites at [facility]. For routine questions regarding patient records, call [phone] during business hours, M-F 8:00 AM - 5:00 PM Central Time. Record requests for emergency care only can be directed to [phone] at any time.[facility] Allergies Active Allergy Reactions Criticality Noted Date Comments Doxycycline Hives (Reselect Reaction) Low 2 Medications Medication Sig Dispensed Refills Start Date End Date Status atenoloL (TENORMIN) 50 mg tablet atenolol 50 mg tablet 04/24/2022 Active glimepiride (AMARYL) 2 mg tablet TAKE 1 TABLET BY MOUTH DAILY WITH BREAKFAST* Active lisinopriL (PRINIVIL,ZESTRIL) 5 mg tablet Take 5 mg by mouth daily. 04/13/2022 Active rosuvastatin (CRESTOR) 5 mg tablet Take 5 mg by mouth daily. Active oxyCODONE (ROXICODONE) 5 mg immediate release tablet 04/01/2023 Active metFORMIN (GLUCOPHAGE) 1,000 mg tablet Take 1,000 mg by mouth 2 (two) times a day with meals. 04/24/2022 Active tamsulosin (FLOMAX) 0.4 mg 24 hr capsule Take 1 capsule (0.4 mg total) by mouth daily. 30 capsule 04/03/2023 Active HYDROcodone-acetamin ophen ([place]CO) 5-325 mg per tabletIndications:Ac [place] Pain Exception Take 1-2 tablets by mouth every 6 (six) hours as needed for severe pain or score 7-10 of 10 (pain) Indication: Acute Pain Exception. No more than 8 tablets per day 20 tablet 04/03/2023 Active Active Problems Problem Noted Date [...] living situation today? I have a [facility] place to live 04/03/2023 Sex and [...] Vaccine ( season) 2023 09/26/2021, 01/13/2021, 12/23/2020 Depression Screening (Annual PHQ-2) 10/06/2023 Influenza Vaccine (#1) 2024 , 07/16/2020, 09/21/2019, Additional history exists DTaP,Tdap,and Td Vaccines (2 - Td or Tdap) 08/14/2028 08/14/2018 Pneumococcal vaccine (0-64 years) Aged Out 04/09/2023 No longer eligible based on patient's age to complete this topic
--- OUTSIDE RECORDS SUMMARY | 2024-04-11 07:51 | XMS_ITS | Clinical Summary ---
Author Organization [facility] Address [address] [place] [address]. [place] [address] Care Team Providers Care Motion Designer Name Role Phone Veronica Byrne Primary Care Provider [phone] Allergies No known active allergies Medications Medication [...] of Treatment Not on file Care Teams Motion Designer Relationship Specialty Start Date End Date Veronica Byrne [facility] [address] [place], [place] [id number] PCP - General Nurse Practitioner 02/24/18
--- OUTSIDE RECORDS SUMMARY | 2024-04-11 07:51 | XMS_ITS | Referral Summary ---
Author Organization [facility] Address [address] [place] [address] Care Team Providers Care Interline Clerk Name Role Phone Unavailable Primary Care Provider Unavailabl e Source Comments Patient records contain information from all sites at [facility]. For routine questions regarding patient records, call [phone] during business hours, M-F 8:00 AM - 5:00 PM Central Time. Record requests for emergency care only can be directed to [phone] at any time.[facility] Allergies Active Allergy Reactions Criticality Noted Date [...] HYDROcodone-acetamin ophen (NORCO) 5-325 mg per tabletIndications:Ac [place] Pain Exception Take 1-2 tablets by mouth [...] your living situation today? I have a [facility] place to live 04/03/2023 Sex and Gender Information Value Date Recorded Sex Assigned at Male 04/03/2023 6:25 AM CDT Gender Identity Male 04/03/2023 6:25 AM CDT Sexual Orientation Not on file Plan of Treatment Not on file
--- OUTSIDE RECORDS SUMMARY | 2024-04-11 07:52 | XMS_ITS ---
Author Organization [facility] Address [address] [place] [address] Care Team Providers Care Locate Technician Name Role Phone Unavailable Unavailable Unavailable Surgery Details Not on file Complications Check Surgery Details section. Procedure Estimated Blood Loss Check Surgery Details section. Procedure Findings Check Surgery Details section. Procedure Specimens Taken Check Surgery Details section.
== END 2024-04-09 08:35 | disposition home or self-care (01) ==
LOC: NFLDREF 04-11 07:49
PROVIDERS: PCP Family Medicine; Referring Provider Family Medicine; Visit Provider Family Medicine
DX: E11.9 Type 2 diabetes mellitus without complications (principal); I10 Essential (primary) hypertension; E78.5 Hyperlipidemia, unspecified; Z79.84 Long term (current) use of oral hypoglycemic drugs; Z12.5 Encounter for screening for malignant neoplasm of prostate; Z13.21 Encounter for screening for nutritional disorder
CPT/HCPCS: 80053; 80061; 82043; 82570; 82607; G0103

== ENCOUNTER 2024-05-27 13:03 | Outpatient (RCR) | payer OTHER, SELFPAY ==
[2024-05-27 13:25] LABS: Basophils Percent Auto 0.2 % (0.0-3.0); Eosinophils Percent Auto 5.7 % (0.0-7.0); Hematocrit 44.1 % (37.0-53.0); Hemoglobin* 14.2 gm/dL (13.5-17.5); Immature Granulocytes Pct Auto 0.1 %; Lymphocytes Percent Auto 81.4 % (20-44); Mean Corpuscular HGB Conc 32 gm/dL (32-36); Mean Corpuscular Hemoglobin 29 pg (26-34); Mean Corpuscular Volume 91 fL (80-100); Monocytes Percent Auto 1.9 % (0.0-11.0); Neutrophils Percent Auto 10.7 % (42.0-72.0); Platelet Count* 193 K/uL (140-440); RDW Coefficient of Variation % 13.1 % (11.5-15.5); Red Blood Count 4.85 m/uL (4.30-5.90)
[2024-05-27 14:11] LABS: Slide Review Reflex Yes; White Blood Count* 43.64 K/uL (4.50-11.00)
[2024-05-27 14:12] LABS: Slide Review Acceptable Review (Acceptable)
== END 2024-11-23 23:59 | disposition home or self-care (01) ==
LOC: CCIC 13:03
PROVIDERS: PCP Family Medicine; Visit Provider Internal Medicine Hematology & Oncology
DX: C91.10 Chronic lymphocytic leukemia of B-cell type not having achieved remission (principal)
CPT/HCPCS: 36415; 85025; 99212; 99213; G0463

== ENCOUNTER 2025-04-26 08:13 | Outpatient (CLI) | payer MEDICARE, BC, SELFPAY | END 2025-04-26 08:14 | disposition home or self-care (01) | LOC: NFLDREF 04-27 16:29 | PROVIDERS: PCP Family Medicine; Referring Provider Family Medicine; Visit Provider Family Medicine | DX: E11.65 Type 2 diabetes mellitus with hyperglycemia (principal); I10 Essential (primary) hypertension | CPT/HCPCS: 80061; 82043; 82570 ==

== ENCOUNTER 2025-05-25 09:34 | Emergency (ER) | payer MEDICARE, BC, SELFPAY ==
--- OUTSIDE RECORDS SUMMARY | 2025-05-25 09:37 | XMS_ITS | Clinical Summary ---
Author Organization [facility] Address [address] [place] [address]. 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 Gender Identity Not on file Sexual Orientation Not on file Last Filed Vital Signs Vital Sign Reading Time Taken Comments Blood Pressure 144/97 02/24/2018 7:12 PM CDT Pulse 70 03/21/2017 11:29 AM CDT Temperature 37 C (98.6 F) 02/24/2018 5:52 PM CDT Respiratory Rate 16 02/24/2018 7:16 PM CDT Oxygen Saturation 100% 02/24/2018 7:16 PM CDT Inhaled Oxygen Concentration - - Weight 113.4 kg (250 lb) 02/24/2018 5:52 PM CDT Height 182.9 cm (6') 03/21/2017 11:29 AM CDT Body Mass Index 33.91 03/21/2017 11:29 AM CDT Plan of Treatment Not on file Insurance [facility] Care Teams Licensed Esthetician Relationship Specialty Start Date End Date Veronica Byrne [facility] [address] [place] [address] PCP - General Nurse Practitioner 02/24/18
--- OUTSIDE RECORDS SUMMARY | 2025-05-25 09:37 | XMS_ITS | Clinical Summary ---
Author Organization [facility] Address [address] [place] [address] Care Team Providers Care Manager Sharepoint Name Role Phone Marcelino Ramirez MD Primary Care Provider [phone] Allergies Active Allergy Reactions Criticality Noted Date Comments Doxycycline Hives Low 03/25/2022 Medications atenoloL (TENORMIN) 50 mg tablet Take 50 mg by mouth once daily. 2 Active glimepiride (AMARYL) 2 mg tablet TAKE ONE TABLET BY MOUTH IN THE MORNING WITH BREAKFAST. 2 Active lisinopriL (PRINIVIL; ZESTRIL) 5 mg tablet Take 5 mg by mouth once daily. 2 Active metFORMIN (GLUCOPHAGE) 1,000 mg tablet Take 1,000 mg by mouth in the morning and 1,000 mg in the evening. Take with meals. 2 Active rosuvastatin (CRESTOR) 5 mg tablet Take 5 mg by mouth at bedtime. 2 Active tamsulosin (FLOMAX) 0.4 mg capsule Take 0.4 mg by mouth once daily. Active HYDROcodone-ac etaminophen ([place]) 5-325 mg per tablet Take 1-2 Tablets [...] at Not on file Legal Sex Male 1:27 PM CDT Gender Identity Not on file Sexual Orientation [...] Health Maintenance Due Date Last Done Comments Tetanus booster 12/31/1970 Depression screening for age 12+ 1972 HIV for age 15-65 12/31/1974 BMI (ht and wt on same day) for age 18+ 12/31/1977 Hepatitis C screening for ag e 18-79 12/31/1977 Colonoscopy through age 75 12/31/2004 Lipids for age 45-75 12/31/2004 Pneumococcal series for age 50+ (1 of 1 - PCV) 12/31/2009 Zoster (shingles) series for age 50+ (1 of 2) 12/31/2009 COVID-19 vaccine series ( - 2023- season) 2024 09/26/2021, 01/13/2021, 12/23/2020 Influenza Vaccine (#1) 2025 RSV vaccine for adults or (1 - 1-dose 75+ series) 12/31/2034 Hepatitis B series for 19+ Aged Out N o longer eligible based on patient's age to complete this topic Care Teams Manager Sharepoint Relationship Specialty Start Date End Date Marcelino Ramirez MD [address] [place] [address] PCP - General Family Practice 05/08/22
[2025-05-25 09:47] VITALS: BP 136/83; PULSE 70; RESP 18; TEMP 36.3; O2SAT 94; BMI 30.5
[2025-05-25 10:02] LABS: Appearance Urine Clear (Clear)
--- NOTE | 2025-05-25 10:28 | CRLHL7_ITS ---
For Patients: As a result of the Century Cures Act, medical imaging exams and procedure reports are released immediately into your electronic medical record. You may view this report before your referring provider. If you have questions, please contact your health care provider. INDICATION: .RT FLANK PAIN, R/O KIDNEY STONE TECHNIQUE: CT abdomen and pelvis without contrast. COMPARISON: March 2023. FINDINGS: Lower chest: The visualized lower lungs are aerated. No pleural or pericardial effusion. ABDOMEN: Liver: Normal attenuation. Gallbladder and biliary: Normal gallbladder without radiopaque stone. Normal caliber bile ducts. Spleen: Normal size and attenuation. Pancreas: The noncontrast pancreas is homogeneous in attenuation without peripancreatic inflammatory changes or ductal dilatation. Adrenal glands: Normal adrenal glands. Kidneys and ureters: Mild right-sided hydroureteronephrosis secondary to 3 separate stones within the renal collecting system. First stone occurs in the distal 3rd the ureter measuring 4 millimeters. Additional 5 millimeter stone in the more distal 3rd aspect of the ureter. Additional 3 millimeter stone within the right UVJ. There is perinephric stranding. Additional nonobstructing inferior pole 10 millimeter right renal stone. Left renal cyst. GI tract: The stomach is relatively decompressed. Normal caliber small and large bowel loops. Appendix is not definitively visualized. Colonic diverticulosis without diverticulitis. Vascular structures: Normal caliber aorta with atherosclerotic calcifications. Lymph nodes: Prominent mesenteric and periaortic lymph nodes measuring up to 16 x 19 millimeters in the right lower quadrant mesentery. Peritoneum: No free air, free fluid, or focal drainable fluid collection. PELVIS: Genitourinary system: Mild circumferential wall thickening of the urinary bladder. Normal-sized prostate. Calcified vas deferens suggesting underlying diabetes. SKELETAL STRUCTURES AND SOFT TISSUES: Trace anterolisthesis of L5 on S1 secondary to bilateral L5 pars defects. IMPRESSION: 1. Mild right-sided hydroureteronephrosis secondary to 3 separate stones within the renal collecting system. First stone occurs in the distal 3rd the ureter measuring 4 millimeters. Additional 5 millimeter stone in the more distal 3rd aspect of the ureter. Additional 3 millimeter stone within the right UVJ. There is perinephric stranding. 2. Additional nonobstructing inferior pole 10 millimeter right renal stone. 3. Prominent/enlarged mesenteric and periaortic lymph nodes measuring up to 16 x 19 millimeters in the right lower quadrant mesentery. Of indeterminate cause. Differential considerations include reactive lymph nodes, of infectious/inflammatory origin, or lymphoproliferative etiology. Please note that all CT scans at this facility use dose modulation, iterative reconstruction, and/or weight-based dosing when appropriate to reduce radiation dose to as low as reasonably achievable. Dictated by Victor M Russo MD @ 05/25/2025 11:46:32 AM (Electronically Signed)
--- NOTE | 2025-05-25 10:31 | ED.GENADULT ---
HPI - General Adult General Chief complaint: Urogenital Problems, Male Stated complaint: kidney stone Time Seen by Provider: 05/25/25 09:44 History of Present Illness HPI narrative: [age] year white male has had a history kidney stone the past presents with several day history of some right low back pain, but last night it became more severe. He seemed like he could not fully urinate. He has had some dribbling urination, no blood in his urine. No fevers. No chills. No perineal numbness or pain. He status seems similar to his kidney stone but not quite as painful as the past 1. He has had some abdominal distension. He is eating and drinking adequately, feels mildly nauseated. Denies anything for pain at this time. Describes the pain in the right flank, but no real radiation but he did have some mild testicular discomfort as well bilaterally. No gross hematuria. No rigors or chills. He does have blood in his urine on presentation, no marked white cells or red cells. Related Data Home Medications ?Medication ?Instructions ?Recorded ?Confirmed cholecalciferol (vitamin D3) 10 10 mcg PO QDAY 05/15/23 05/02/25 mcg (400 unit) capsule folic acid 1 mg tablet 1 mg PO QDAY 05/15/23 05/02/25 multivitamin 1 tab PO QAM 05/15/23 05/02/25 Diabetic Test Strips 08/19/23 05/02/25 ibuprofen 200 mg capsule 400 mg PO Q8H PRN 08/19/23 05/02/25 vitamin B complex 1 tab PO QDAY 08/19/23 05/02/25 Previous Rx's ?Medication ?Instructions ?Recorded atenolol 50 mg tablet 50 mg PO DAILY #90 tabs 05/02/25 lisinopril 5 mg tablet 5 mg PO DAILY #90 tabs 05/02/25 metformin 1,000 mg tablet 1,000 mg PO BIDWMEAL #180 tabs 05/02/25 peg 3350-electrolytes 236 240 ml PO Q10M #4,000 mL 05/02/25 gram-22.74 gram-6.74 gram-5.86 gram solution (Golytely) rosuvastatin 10 mg tablet 10 mg PO QDAY #90 tabs 05/02/25 ciprofloxacin HCl 500 mg tablet 500 mg PO BID #14 tabs 05/25/25 (Cipro) hydrocodone 5 mg-acetaminophen 325 1 tab PO Q6H PRN pain #14 tabs 05/25/25 mg tablet ketorolac 10 mg tablet 10 mg PO Q6H PRN pain 3 days #10 05/25/25 tabs Allergies Allergy/AdvReac Type Severity Reaction Status Date / Time doxycycline Allergy Hives Verified 05/02/25 13:39 Review of Systems Status of ROS: Reports: 6 or more systems reviewed and unremarkable except as noted in History and below [facility] Medical History Hyperlipidemia ?E78.5 - Hyperlipidemia, unspecified (ICD-10) Basal cell carcinoma ?C44.91 - Basal cell carcinoma of skin, unspecified (ICD-10) CLL (chronic lymphocytic leukemia) ?C91.10 - Chronic lymphocytic leukemia of B-cell type not having achieved remission (ICD-10) HTN (hypertension) ?I10 - Essential (primary) hypertension (ICD-10) Diabetes mellitus, type II ?E11.9 - Type 2 diabetes mellitus without complications (ICD-10) History of kidney stones (04/01/23) ?Z87.442 - Personal history of urinary calculi (ICD-10) Surgical History S/P umbilical hernia repair, follow-up exam ?Z09 - Encounter for follow-up examination after completed treatment for conditions other than malignant neoplasm (ICD-10) Biceps muscle tear ?S46.219A - Strain of muscle, fascia and tendon of other parts of biceps, unspecified arm, initial encounter (ICD-10) H/O local excision of skin lesion ?Z98.890 - Other specified postprocedural states (ICD-10) Hx of appendectomy ?Z90.49 - Acquired absence of other specified parts of digestive tract (ICD-10) Family History Father Lymphoma Diabetes Social History What is your current living situation?: I presently have a place to live Problems where you live: no known problems In the past 12 months, utilities in danger of being shut off: no In past 12 months, lack of transportation kept you from medical appts, meetings, work, or getting things needed for daily living: no In the past 12 mos, have been you worried that your food would run out before you had money to buy more?: never true In the past 12 mos, the food you bought just didn't last and you didn't have money to buy more?: never true Smoking Status: Never smoker Do you use any of these nicotine containing products: None How often do you have a drink containing alcohol: never AUDIT-C Alcohol total score: 0 Non-prescribed substance use: former substance user Non-prescribed substance use details: used to smoke weed a long time ago Caffeine: Yes (coffee) How often does anyone, including family, friends and others, physically hurt you: never How often does anyone, including family, friends and others, insult or talk down to you: never How often does anyone, including family, friends and others, threaten you with harm: never How often does anyone, including family, friends and others, scream or curse at you: never Exam Narrative: Exam Narrative: Objective: Vital signs are within normal limits Alert orient x3 No distress Abdomen is obese nontender no masses negative CVA tenderness bilaterally exam shows no tenderness in the testicles No herniations noted in the groin Extremities normal Neurologic nonfocal good peripheral perfusion noted. Const: Vital Signs, click to edit/add: Vital Signs - 24 hr 05/25/25 09:47 05/25/25 11:40 05/25/25 11:41 Temperature 97.4 F L Pulse Rate 63 64 Pulse Rate [Pulse Oximeter] 70 Respiratory Rate 18 Blood Pressure 128/78 Blood Pressure [Ri ght Upper Arm] 136/83 Pulse Oximetry 94 95 94 Oxygen Delivery Me thod Room Air 05/25/25 11:45 05/25/25 11:47 05/25/25 11:48 Temperature Pulse Rate 63 64 62 Pulse Rate [Pulse Oximeter] Respiratory Rate Blood Pressure 129/76 Blood Pressure [Ri ght Upper Arm] Pulse Oximetry 92 93 93 Oxygen Delivery Me thod Course Vital Signs Vital signs: Initial Vital Signs Temperature 97.4 F L 05/25/25 09:47 Temperature Source Temporal Artery Scan 05/25/25 09:47 Pulse Rate 70 05/25/25 09:47 Respiratory Rate 18 05/25/25 09:47 Blood Pressure 136/83 05/25/25 09:47 Blood Pressure Mean 100 05/25/25 09:47 Blood Pressure Position Supine 05/25/25 09:47 Pulse Oximetry 94 05/25/25 09:47 Oxygen Delivery Method Room Air 05/25/25 09:47 Vital Signs Temperature 97.4 F L 05/25/25 09:47 Pulse Rate 70 05/25/25 09:47 Respiratory Rate 18 05/25/25 09:47 Blood Pressure 136/83 05/25/25 09:47 Pulse Oximetry 94 05/25/25 09:47 Oxygen Delivery Method Room Air 05/25/25 09:47 Temperature 97.4 F L 05/25/25 09:47 Pulse Rate 62 05/25/25 11:48 Respiratory Rate 18 05/25/25 09:47 Blood Pressure 129/76 05/25/25 11:47 Pulse Oximetry 93 05/25/25 11:48 Oxygen Delivery Method Room Air 05/25/25 09:47 Medications Administered Medications: Discontinued Medications Generic Name Dose Route Start Last Admin Trade Name Freq PRN Reason Stop Dose Admin Sodium Chloride 1,000 mls @ 6,000 mls/hr 05/25/25 10:30 05/25/25 10:51 0.9 % Sodium Chloride 1000 Ml IV 05/25/25 10:39 6,000 mls/hr .Q10M [facility] Administration Medical Decision Making [facility] Narrative Medical decision making narrative: [age] year white male with history of kidney stone with intermittent right low back pain now with urinary symptoms and back pain this worsened last night. Rule out stone. Patient will get a CT scan of the abdomen pelvis without contrast to rule out stone, will also check laboratory studies, give him IV fluid. At this time he declines anything for pain, and will see how the lab studies progress. Certainly could have intra-abdominal pathology such as diverticulitis obstruction constipation, or kidney stone. Patient was comfortable assessment and plan. Wished to proceed. Addendum 12 noon: The patient's white count is elevated 44,000 but that is stable for him. He is being followed for his CLL. The patient also has fairly reassuring blood work. His ER profile is unremarkable in his creatinine is just minimally elevated 1.6. His CRP is less than 0.5 urinalysis looks basically negative does have 1+ blood 2-5 bright red cells 0-2 white cells. Negative leukocyte esterase. The patient's CT scan of the abdomen shows mild right-sided hydronephrosis with surprisingly 3 separate stones within the ureteral passage a 4 mm a 5 mm and a 3 mm stone. He has a nonobstructing inferior pole 10 mm right renal stone he has got some prominent enlarged mesenteric and periaortic lymph nodes likely consistent with his CLL and he can recheck this is with his doctor. I think also put him on some antibiotic for few days given his multitude of stones. I recommend he see his doctor in the next few days, would also recommend that he set up an appointment for Urology that he followed up with at [facility]. Lab Data Labs: Lab Results 05/25/25 05/25/25 Range/Units 09:57 10:40 WBC 44.00 H* (4.50-11.00) K/uL RBC 4.97 (4.30-5.90) m/uL Hgb 14.6 (13.5-17.5) gm/dL Hct 44.4 (37.0-53.0) % MCV 89 (80-100) fL MCH 29 (26-34) pg MCHC 33 (32-36) gm/dL RDW Coeff of [place] 13.0 (11.5-15.5) % Plt Count 190 (140-440) K/uL Neut % (Auto) 17.2 L (42.0-72.0) % Lymph % (Auto) 78.1 H (20-44) % [place] % (Auto) 3.6 (0.0-11.0) % Eos % (Auto) 0.7 (0.0-7.0) % Baso % (Auto) 0.2 (0.0-3.0) % Neut # (Auto) 7.60 H (1.7-7.0) K/uL Lymph # (Auto) 34.40 H (0.90-2.90) K/uL [place] # (Auto) 1.60 H (0.00-0.90) K/UL Eos # (Auto) 0.30 (0.00-0.50) K/uL Baso # (Auto) 0.10 (0.00-0.30) K/uL Abs Immat Gran (auto) 0.10 (0.00-0.30) K/uL Imm/Tot Granulo (auto) 0.2 % Diff Slide Review Acceptable Review (Acceptable) Sodium 138 (135-149) mmol/L Potassium 4.4 (3.6-5.1) mmol/L Chloride 105 (96-114) mmol/L Carbon Dioxide 22 (20-32) mmol/L Anion Gap 11 (7-15) mEq/L BUN 26 (7-30) mg/dL Creatinine 1.6 H (0.5-1.5) mg/dL Estimated Creat Clear 50.52 Estimated GFR 48 ml/min Glucose 141 H (60-115) mg/dL Calcium 9.8 (8.4-10.6) mg/dL Total Bilirubin 0.7 (0.1-1.5) mg/dL Direct Bilirubin 0.2 (0.0-0.5) mg/dL AST 32 (12-35) U/L ALT 23 (4-50) U/L Alkaline Phosphatase 69 (40-150) U/L C-Reactive Protein < 0.5 L (0.5-1.0) mg/dL Total Protein 7.0 (6.0-8.3) g/dL Albumin 4.5 (3.3-5.0) g/dL Amylase 55 (18-89) U/L Urine Color Yellow (Yellow) Urine Appearance Clear (Clear) Urine pH 5.5 (5.0-8.5) Ur Specific [place] 1.020 (1.000-1.030) Urine Protein Negative (Negative) Urine Glucose (UA) Negative (Negative) Urine Ketones Negative (Negative) Urine Blood 1+ A (Negative) Urine Nitrite Negative (Negative) Urine Bilirubin Negative (Negative) Urine Urobilinogen 0.2 (0.2-1.0) Ur Leukocyte Esterase Negative (Negative) Urine RBC 2-5 A (0-2) Urine WBC 0-2 (0-5) Ur Squamous Epith Cells None (None-Few) Urine Bacteria Few A (None) Discharge Plan Discharge Clinical Impression: Acute right-sided low back pain, Acute urinary retention, Kidney stones Patient Disposition: Home, Self-Care Condition: Stable Instructions: Kidney Stones (ED), How to Strain Your Urine (ED) Additional Instructions: Push fluids, you can use the Flomax you have at home, I will prescribe the Toradol and Palmer to use as needed for pain. Strain your urine for the next 48 hours. Recommend you see your doctor in 48-72 hours for recheck, recommend calling the Urology Department at [facility] where you were seen in the past for kidney stones and set up appointment within the next 7-10 days. Return to the ED as needed. Up with joint of antibiotic antonia Dupont, also you have some lymph nodes that were slightly swollen in your lower abdomen that he should recheck with your regular doctor as well. Activity Level: Light activity Discharge Diet: Regular Prescriptions: New ketorolac 10 mg tablet 10 mg PO Q6H PRN (Reason: pain) 3 Days Qty: 10 0RF hydrocodone-acetaminophen 5-325 mg tablet 1 tab PO Q6H PRN (Reason: pain) Qty: 14 0RF ciprofloxacin HCl [Cipro] 500 mg tablet 500 mg PO BID Qty: 14 0RF No Action multivitamin Tablet 1 tab PO QAM folic acid 1 mg tablet 1 mg PO QDAY cholecalciferol (vitamin D3) 10 mcg (400 unit) capsule 10 mcg PO QDAY ibuprofen 200 mg capsule 400 mg PO Q8H PRN vitamin B complex Tablet 1 tab PO QDAY (DME) Diabetic Test Strips Misc See Rx Instructions .Route Rx Instructions: As directed peg 3350-electrolytes [Golytely] 236-22.74-6.74 -5.86 gram recon soln 240 ml PO Q10M Qty: 4000 0RF Rx Instructions: until fecal effluent is clear atenolol 50 mg tablet 50 mg PO DAILY Qty: 90 3RF lisinopril 5 mg tablet 5 mg PO DAILY Qty: 90 3RF metformin 1,000 mg tablet 1,000 mg PO BIDWMEAL Qty: 180 3RF rosuvastatin 10 mg tablet 10 mg PO QDAY Qty: 90 3RF Follow Up/Referrals: Janak Salmeron MD [Primary Care Provider, Family Practice] Stand Alone Forms: [employer] Info Instructions
[2025-05-25 10:46] LABS: Hematocrit 44.4 % (37.0-53.0); Hemoglobin* 14.6 gm/dL (13.5-17.5); Immature Granulocytes Pct Auto 0.2 %; Mean Corpuscular HGB Conc 33 gm/dL (32-36); Mean Corpuscular Hemoglobin 29 pg (26-34); Mean Corpuscular Volume 89 fL (80-100); RDW Coefficient of Variation % 13.0 % (11.5-15.5); Red Blood Count 4.97 m/uL (4.30-5.90)
[2025-05-25 10:56] LABS: Immature Granulocytes Abs Auto 0.10 K/uL (0.00-0.30); Lymphocytes Absolute Auto 34.40 K/uL (0.90-2.90); White Blood Count* 44.00 K/uL (4.50-11.00)
[2025-05-25 11:09] LABS: Albumin* 4.5 g/dL (3.3-5.0); Chloride* 105 mmol/L (96-114)
[2025-05-25 11:10] LABS: Potassium* 4.4 mmol/L (3.6-5.1); Sodium* 138 mmol/L (135-149)
[2025-05-25 11:13] LABS: Alanine Aminotransferase* 23 U/L (4-50); Alkaline Phosphatase* 69 U/L (40-150); Anion Gap 11 mEq/L (7-15); Aspartate Amino Transferase* 32 U/L (12-35); Bilirubin Direct* 0.2 mg/dL (0.0-0.5); Bilirubin Total* 0.7 mg/dL (0.1-1.5); Blood Urea Nitrogen* 26 mg/dL (7-30); Calcium* 9.8 mg/dL (8.4-10.6); Carbon Dioxide* 22 mmol/L (20-32); Creatinine* 1.6 mg/dL (0.5-1.5); Est. Creatinine Clearance* 50.52; Estimated Glomerular Filt Rate 48 ml/min; Glucose* 141 mg/dL (60-115); Total Protein* 7.0 g/dL (6.0-8.3)
[2025-05-25 11:21] LABS: Slide Review Reflex Yes
[2025-05-25 11:40] VITALS: BP 128/78; PULSE 63; O2SAT 95
[2025-05-25 11:41] VITALS: PULSE 64; O2SAT 94
[2025-05-25 11:44] LABS: Slide Review Acceptable Review (Acceptable)
[2025-05-25 11:45] VITALS: PULSE 63; O2SAT 92
[2025-05-25 11:47] VITALS: BP 129/76; PULSE 64; O2SAT 93
[2025-05-25 11:48] VITALS: PULSE 62; O2SAT 93
== END 2025-05-25 12:11 | disposition home or self-care (01) ==
PROVIDERS: Emergency Provider Family Medicine; PCP Family Medicine
DX: M54.50 Low back pain, unspecified (principal); R33.9 Retention of urine, unspecified; N20.0 Calculus of kidney
CPT/HCPCS: 36415; 51798; 74176; 80048; 80076; 81001; 81003; 82150; 85025; 86140; 87086; 96360; 96361; 99284; 99285; J7030